=== PATIENT | female | born 1975 | race Caucasian/White ===

== ENCOUNTER 2017-07-12 08:21 | Emergency (ER) | payer OTHER ==
[~2017-07-12] VITALS: Ht 170.2 cm; Wt 77.1 kg
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
[2017-07-12 09:09] LABS: BILIRUBIN,URINE NEGATIVE (NEGATIVE); CLARITY,URINE HAZY (CLEAR); COLOR,URINE YELLOW (YELLOW); KETONES,URINE NEGATIVE (NEGATIVE); LEUKOCYTE ESTERASE ,URINE 1+ (NEGATIVE); NITRITE,URINE NEGATIVE (NEGATIVE); URINE UROBILINOGEN 0.2 mg/dL (0.2 - 1)
[2017-07-12 09:11] LABS: PREGNANCY TEST, URINE NEGATIVE (NEGATIVE)
[2017-07-12 09:13] LABS: PROTEIN,URINE DIPSTICK 1+ (NEGATIVE)
[2017-07-12 09:52] LABS: BACTERIA,URINE MODERATE /HPF; EPITHELIAL CELLS,URINE MODERATE /LPF; TRANSITIONAL EPI CELLS,URINE RARE
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
[2017-07-12 10:47] VITALS: BP 111/67
== END 2017-07-12 11:29 | disposition home or self-care (01) ==
LOC: ER 08:21
DX: M54.5 Low back pain (principal); M79.652 Pain in left thigh; N39.0 Urinary tract infection, site not specified; N30.90 Cystitis, unspecified without hematuria; V43.52XA Car driver injured in collision with other type car in traffic accident, initial encounter; Y93.89 Activity, other specified; Y92.410 Unspecified street and highway as the place of occurrence of the external cause
CPT/HCPCS: 72100; 81001; 81025; 99283